=== PATIENT | male | born 1955 | race Caucasian/White ===

== ENCOUNTER 2018-06-30 09:14 | Emergency (ER) | payer MEDICARE ==
[~2018-06-30] VITALS: Ht 175.3 cm; Wt 71.6 kg
[2018-06-30 09:17] VITALS: BP 152/72
== END 2018-06-30 11:38 | disposition home or self-care (01) ==
LOC: ED 09:42
DX: M79.672 Pain in left foot (principal); M10.9 Gout, unspecified
CPT/HCPCS: 99283